=== PATIENT | male | born 1945 | race Caucasian/White ===

== ENCOUNTER 2018-12-27 06:44 | Observation (INO) ==
--- NOTE | 2018-12-27 07:00 | Emergency Department Note ---
Disposition Clinical Impression: Chest pain, rule out acute myocardial infarction Disposition: Admitted As Inpatient Condition: Good [facility]: [facility]Primary Care Provider[facility] - Forms: ED Satisfaction Letter Time of Disposition: 08:16 Chest Pain HPI - General Chief Complaint: ED Chest Pain Stated Complaint: chest pain/discomfort Time Seen by Provider: 12/27/18 06:46 Source: patient Mode of arrival: ambulatory Limitations: no limitations Vital Signs Reviewed: Yes Nursing Notes Reviewed: Yes - History of Present Illness HPI Narrative: Alert and oriented nontoxic-appearing 73-year-old male with a history of diabetes, hypertension, hyperlipidemia, and a previous history of smoking (stopped 10 years ago) presents for evaluation of a sudden onset of epigastric and substernal/anterior chest heaviness. He states that he awoke at 5:00 AM and felt fine. He went to sit in his chair and at approximately 5:15, the pain began. He stated that he was nauseated but did not vomit. He does endorse some mild degree of dyspnea but denies any cough or sputum production/hemoptysis. Pain is slightly worsened with inspiration. He denies any previous cardiac history but however states that he had a prescription for a bottle of nitrogly cerin as provided to him from the urgent care at the [facility]. He states that he experienced symptoms like this one other time in the past several years ago however this morning, the pain was more intense. He did self administer 4 sublingual nitroglycerin tablets at home. He states that approximately 20 minutes later, his pain improved from an 8 out of 10 to a 2 out of 10 on a 10 point scale. He was given 324mg of aspirin by EMS in route. He denies any other previous cardiac history or previous cardiac workup. Pt complaint: chest pain Onset (ago): hour(s) (5:15 AM) Duration: other (Improved) Pain Location: substernal, epigastric Severity scale (1-10): 2 Quality: heaviness Pain Radiation: none Improves with: nothing Worsens with: nothing Associated symptoms: Reports: nausea, dyspnea. Denies: vomiting, diaphoresis, syncope, palpitations, fever, cough, leg swelling Treatments prior to arrival chest pain: aspirin, nitroglycerin - Related Data Allergies Allergy/AdvReac Type Severity Reaction Status Date / Time No Known Allergies Allergy Verified 12/27/18 06:50 All systems ED: reviewed and negative except as stated. Review of Systems: As Per HPI Constitutional: Denies: fever, chills, weakness, weight change Eyes: Denies: eye pain, eye discharge, vision change ENT ED: Denies: ear pain, throat pain, dental pain, hearing loss, epistaxis, congestion, dysphagia Cardiovascular: Reports: as per HPI, chest pain. Denies: palpitations, dyspnea on exertion, edema, syncope Respiratory: Reports: as per HPI, dyspnea. Denies: cough, wheezes, hemoptysis, stridor, sputum production Gastrointestinal: Reports: as per HPI, nausea. Denies: abdominal pain, vomiting, diarrhea, constipation, hematemesis, melena, hematochezia Genitourinary: Denies: urgency, dysuria, frequency, hematuria Musculoskeletal: Denies: back pain, neck pain, arthralgia, myalgia Integumentary: Denies: rash, abrasion, lesions Neurological: Denies: headache, weakness, numbness, paresthesias, confusion, abnormal gait, vertigo Psychiatric: Denies: anxiety, depression, suicidal thoughts, homicidal thoughts, auditory hallucinations, visual hallucinations Endocrine: Denies: fatigue Hematological/Lymphatic: Denies: easy bleeding, easy bruising Allergic/Immunologic: Denies: facial swelling, urticaria Physical Exam - General Limitations: no limitations General appearance: alert, in no apparent distress - Head Head exam: atraumatic, normocephalic, normal inspection - Eye Eye exam: Present: normal appearance, PERRL, EOMI. Absent: nystagmus - ENT ENT exam: mucous membranes moist - Neck Neck exam: Present: normal inspection, full ROM - Chest Chest inspection: Present: normal inspection, symmetric chest wall rise. Absent: tenderness - Respiratory Respiratory exam: Present: normal lung sounds bilaterally. Absent: respiratory distress, wheezes, stridor, accessory muscle use, prolonged expiratory phase - Cardiovascular Cardiovascular exam: Present: regular rate, normal rhythm, normal heart sounds - Abdominal Exam Abdominal exam: Present: soft, Non-Tender, normal bowel sounds. Absent: distention, guarding, rebound, rigidity, mass - Extremities Exam Extremities exam: Present: normal inspection, full ROM - Neurological Exam Neurological exam: Present: alert, oriented X3 - Psychiatric Psychiatric exam: Present: normal affect, normal mood - Skin Skin exam: Present: warm, dry, intact, normal color Course Course Narrative: D-dimer is slightly elevated however remains within normal limits when adjusted for age. Normal troponin. Normal chest x-ray. Repeat EKG performed at 8:14 AM shows again a sinus rhythm at a rate of 67 bpm, QRS duration 99, QT/QTc interval 415/439. No ST elevations or significant depressions. No change in morphology when compared to previous EKG timed at 651 this morning. The patient has a heart score of 4. He will be admitted to medicine for ACS rule out. I have discussed this plan with Dr. Osborn, ED attending. He has had a [id number] evaluation with the patient and agrees with this plan. 0821: I spoke with Dr. Faust, admitting hospitalist. He has accepted the patient for permission to the hospitalist care. Vital Signs Temperature 98.5 F 12/27/18 06:50 Pulse Rate 54 12/27/18 06:50 Respiratory Rate 16 12/27/18 06:50 Blood Pressure 121/65 12/27/18 06:50 O2 Sat by Pulse Oximetry 100 12/27/18 06:50 Temperature 98.5 F 12/27/18 06:50 Pulse Rate 54 12/27/18 06:50 Respiratory Rate 16 12/27/18 06:50 Blood Pressure 121/65 12/27/18 06:50 O2 Sat by Pulse Oximetry 100 12/27/18 06:50 Oxygen Delivery Oxygen Delivery Room Air Chest Pain - Medical Records Medical records reviewed: Yes I reviewed the patient's medical records. - Lab Data Lab results reviewed: Yes I reviewed the patient's lab results. Lab results narrative: Lab Results 12/27/18 12/27/18 12/27/18 Range/Units 07:04 07:04 07:04 WBC 7.7 (4.3-11.1) K/mcL RBC 4.76 (4.19-5.50) M/mcL Hgb 12.7 L (12.9-16.9) g/dL Hct 38.9 (37.5-50.1) % MCV 81.7 L (83.0-100.0) fL MCH 26.7 L (28.0-33.3) pg MCHC 32.6 (31.6-35.5) g/dL RDW 16.2 H (11.5-14.5) % Plt Count 232 (140-400) K/mcL MPV 10.3 (9.4-12.4) fL Immature Gran % 0.3 (0-4) % Seg Neutrophils % 74.5 % Lymphocytes % 15.1 % Monocytes % 8.6 % Eosinophils % 0.8 % Basophils % 0.7 % Neutrophils # 5.7 (1.6-8.9) K/mcL Lymphocytes # 1.2 (0.6-4.6) K/mcL Monocytes # 0.7 (0.0-1.3) K/mcL Eosinophils # 0.1 (0.0-0.6) K/mcL Basophils # 0.1 (0.0-0.2) K/mcL PT 11.5 (9.4-12.1) Seconds INR 1.0 APTT 40.8 H (26.0-36.0) Seconds D-Dimer 548 H (0-500) ng/mLFEU Sodium (136-145) mEq/L Potassium (3.5-5.1) mEq/L Chloride (98-107) mEq/L Carbon Dioxide (23-29) mEq/L BUN (8-23) mg/dL Creatinine (0.70-1.30) mg/dL Est GFR ( Amer) (> 60) Est GFR (Non-Af Amer) (> 60) BUN/Creatinine Ratio (6-26) Glucose (70-105) mg/dL Calculated Osmolality (280-300) Calcium (8.6-10.3) mg/dL Total Bilirubin (0.3-1.0) mg/dL Direct Bilirubin (0.0-0.2) mg/dL Indirect Bilirubin (0.0-1.2) mg/dL AST (13-39) Units/L ALT (7-52) Units/L Alkaline Phosphatase (34-104) Units/L Troponin I (< 0.04) ng/mL B-Natriuretic Peptide 27 (Less than 100) pg/mL Serum Total Protein (6.4-8.9) g/dL Albumin (3.5-5.7) g/dL Globulin (2.4-3.5) g/dL Albumin/Globulin Ratio (1.1-2.2) Lipase (11-82) Units/L 12/27/18 Range/Units 07:04 WBC (4.3-11.1) K/mcL RBC (4.19-5.50) M/mcL Hgb (12.9-16.9) g/dL Hct (37.5-50.1) % MCV (83.0-100.0) fL MCH (28.0-33.3) pg MCHC (31.6-35.5) g/dL RDW (11.5-14.5) % Plt Count (140-400) K/mcL MPV (9.4-12.4) fL Immature Gran % (0-4) % Seg Neutrophils % % Lymphocytes % % Monocytes % % Eosinophils % % Basophils % % Neutrophils # (1.6-8.9) K/mcL Lymphocytes # (0.6-4.6) K/mcL Monocytes # (0.0-1.3) K/mcL Eosinophils # (0.0-0.6) K/mcL Basophils # (0.0-0.2) K/mcL PT (9.4-12.1) Seconds INR APTT (26.0-36.0) Seconds D-Dimer (0-500) ng/mLFEU Sodium 141 (136-145) mEq/L Potassium 3.6 (3.5-5.1) mEq/L Chloride 106 (98-107) mEq/L Carbon Dioxide 24 (23-29) mEq/L BUN 18 (8-23) mg/dL Creatinine 0.97 (0.70-1.30) mg/dL Est GFR ( Amer) > 60 (> 60) Est GFR (Non-Af Amer) > 60 (> 60) BUN/Creatinine Ratio 19 (6-26) Glucose 131 H (70-105) mg/dL Calculated Osmolality 296 (280-300) Calcium 9.4 (8.6-10.3) mg/dL Total Bilirubin 0.5 (0.3-1.0) mg/dL Direct Bilirubin 0.2 (0.0-0.2) mg/dL Indirect Bilirubin 0.3 (0.0-1.2) mg/dL AST 39 (13-39) Units/L ALT 23 (7-52) Units/L Alkaline Phosphatase 79 (34-104) Units/L Troponin I < 0.03 (< 0.04) ng/mL B-Natriuretic Peptide (Less than 100) pg/mL Serum Total Protein 6.5 (6.4-8.9) g/dL Albumin 3.8 (3.5-5.7) g/dL Globulin 2.7 (2.4-3.5) g/dL Albumin/Globulin Ratio 1.4 (1.1-2.2) Lipase 49 (11-82) Units/L Result diagrams: 12/27/18 07:04 12/27/18 07:04 Lab Results 12/27/18 12/27/18 12/27/18 Range/Units 07:04 07:04 07:04 WBC 7.7 (4.3-11.1) K/mcL RBC 4.76 (4.19-5.50) M/mcL Hgb 12.7 L (12.9-16.9) g/dL Hct 38.9 (37.5-50.1) % MCV 81.7 L (83.0-100.0) fL MCH 26.7 L (28.0-33.3) pg MCHC 32.6 (31.6-35.5) g/dL RDW 16.2 H (11.5-14.5) % Plt Count 232 (140-400) K/mcL MPV 10.3 (9.4-12.4) fL Immature Gran % 0.3 (0-4) % Seg Neutrophils % 74.5 % Lymphocytes % 15.1 % Monocytes % 8.6 % Eosinophils % 0.8 % Basophils % 0.7 % Neutrophils # 5.7 (1.6-8.9) K/mcL Lymphocytes # 1.2 (0.6-4.6) K/mcL Monocytes # 0.7 (0.0-1.3) K/mcL Eosinophils # 0.1 (0.0-0.6) K/mcL Basophils # 0.1 (0.0-0.2) K/mcL PT 11.5 (9.4-12.1) Seconds INR 1.0 APTT 40.8 H (26.0-36.0) Seconds D-Dimer 548 H (0-500) ng/mLFEU Sodium (136-145) mEq/L Potassium (3.5-5.1) mEq/L Chloride (98-107) mEq/L Carbon Dioxide (23-29) mEq/L BUN (8-23) mg/dL Creatinine (0.70-1.30) mg/dL Est GFR ( Amer) (> 60) Est GFR (Non-Af Amer) (> 60) BUN/Creatinine Ratio (6-26) Glucose (70-105) mg/dL Calculated Osmolality (280-300) Calcium (8.6-10.3) mg/dL Total Bilirubin (0.3-1.0) mg/dL Direct Bilirubin (0.0-0.2) mg/dL Indirect Bilirubin (0.0-1.2) mg/dL AST (13-39) Units/L ALT (7-52) Units/L Alkaline Phosphatase (34-104) Units/L Troponin I (< 0.04) ng/mL B-Natriuretic Peptide 27 (Less than 100) pg/mL Serum Total Protein (6.4-8.9) g/dL Albumin (3.5-5.7) g/dL Globulin (2.4-3.5) g/dL Albumin/Globulin Ratio (1.1-2.2) Lipase (11-82) Units/L / Range/Units 07:04 WBC (4.3-11.1) K/mcL RBC (4.19-5.50) M/mcL Hgb (12.9-16.9) g/dL Hct (37.5-50.1) % MCV (83.0-100.0) fL MCH (28.0-33.3) pg MCHC (31.6-35.5) g/dL RDW (11.5-14.5) % Plt Count (140-400) K/mcL MPV (9.4-12.4) fL Immature Gran % (0-4) % Seg Neutrophils % % Lymphocytes % % Monocytes % % Eosinophils % % Basophils % % Neutrophils # (1.6-8.9) K/mcL Lymphocytes # (0.6-4.6) K/mcL Monocytes # (0.0-1.3) K/mcL Eosinophils # (0.0-0.6) K/mcL Basophils # (0.0-0.2) K/mcL PT (9.4-12.1) Seconds INR APTT (26.0-36.0) Seconds D-Dimer (0-500) ng/mLFEU Sodium 141 (136-145) mEq/L Potassium 3.6 (3.5-5.1) mEq/L Chloride 106 (98-107) mEq/L Carbon Dioxide 24 (23-29) mEq/L BUN 18 (8-23) mg/dL Creatinine 0.97 (0.70-1.30) mg/dL Est GFR ( Amer) > 60 (> 60) Est GFR (Non-Af Amer) > 60 (> 60) BUN/Creatinine Ratio 19 (6-26) Glucose 131 H (70-105) mg/dL Calculated Osmolality 296 (280-300) Calcium 9.4 (8.6-10.3) mg/dL Total Bilirubin 0.5 (0.3-1.0) mg/dL Direct Bilirubin 0.2 (0.0-0.2) mg/dL Indirect Bilirubin 0.3 (0.0-1.2) mg/dL AST 39 (13-39) Units/L ALT 23 (7-52) Units/L Alkaline Phosphatase 79 (34-104) Units/L Troponin I < 0.03 (< 0.04) ng/mL B-Natriuretic Peptide (Less than 100) pg/mL Serum Total Protein 6.5 (6.4-8.9) g/dL Albumin 3.8 (3.5-5.7) g/dL Globulin 2.7 (2.4-3.5) g/dL Albumin/Globulin Ratio 1.4 (1.1-2.2) Lipase 49 (11-82) Units/L - Radiology Data Radiology results reviewed: Yes I reviewed the patient's radiology results. Chest X-Ray 12/27/18 06:54 IMPRESSION: No acute cardiopulmonary findings. D/ / Kell Kohler MD / Kell Kohler MD Interpreting Provider: Kell Kohler MD - EKG Data EKG attestation: Yes I reviewed and interpreted this EKG. EKG results narrative: EKG reviewed by Dr. Millan. EKG shows a sinus rhythm at a rate of 58 beats per minute. ND interval 208, QRS duration 102, QT/QTc interval 419/412. No ectopy noted. No ST elevation. Heart Score - Score History: Moderately Suspicious EKG: Normal Age: Greater than 65 Risk Factors: Equal/Greater than 3 risk factor or history of atherosclerotic disease Troponin: Less than normal limit HEART Score Total: 5 Attestation Statement - Attestation Attestation: I examined this patient and my medical decision-making was reviewed with the SHAKE SPLITTER/PA/Advanced Practice Nurse/Resident Physician. I agree with the documented findings, disposition and treatment plan as described except to the extent set forth below. Presents with chest pain and he does not have a history of heart disease and is here with his and he did have associated diaphoresis and dyspnea but no pleuritic aspect no radiation to the back and the patient does have a negative troponin. A initial EKG was done at 6:51 AM showing sinus bradycardia with a rate of 58 and without acute ischemic change but there is evidence of first- degree AV block and a second EKG was done at 8:14 AM at the patient did have o ngoing pain to the second EKG was ordered however at the time the EKG was done and the patient was pain-free and this EKG shows normal sinus rhythm with rate of 67 and also does show first-degree AV block with a ND interval of 222. The patient will be admitted. Hospitalist has been notified and has accepted. [id number]
[2018-12-27 07:14] LABS: Basophils # 0.1 K/mcL (0.0-0.2); Basophils % 0.7 %; Eosinophils # 0.1 K/mcL (0.0-0.6); Eosinophils % 0.8 %; Hematocrit 38.9 % (37.5-50.1); Hemoglobin 12.7 g/dL (12.9-16.9); Immature Granulocytes % 0.3 % (0-4); Lymphocytes # 1.2 K/mcL (0.6-4.6); Lymphocytes % 15.1 %; Mean Corpuscular HGB Conc 32.6 g/dL (31.6-35.5); Mean Corpuscular Hemoglobin 26.7 pg (28.0-33.3); Mean Corpuscular Volume 81.7 fL (83.0-100.0); Mean Platelet Volume 10.3 fL (9.4-12.4); Monocytes # 0.7 K/mcL (0.0-1.3); Monocytes % 8.6 %; Neutrophils # 5.7 K/mcL (1.6-8.9); Platelet Count 232 K/mcL (140-400); Red Blood Count 4.76 M/mcL (4.19-5.50); Red Cell Distribution Width 16.2 % (11.5-14.5); Segmented Neutrophils % 74.5 %
[2018-12-27 07:24] LABS: Prothrombin Time 11.5 Seconds (9.4-12.1)
[2018-12-27 07:27] LABS: Activated Partial Thrombo Time 40.8 Seconds (26.0-36.0)
[2018-12-27 07:39] LABS: Alanine Aminotransferase 23 Units/L (7-52); Albumin 3.8 g/dL (3.5-5.7); Albumin/Globulin Ratio 1.4 (1.1-2.2); Alkaline Phosphatase 79 Units/L (34-104); Aspartate Amino Transferase 39 Units/L (13-39); BUN/Creatinine Ratio 19 (6-26); Bilirubin,Direct 0.2 mg/dL (0.0-0.2); Bilirubin,Indirect 0.3 mg/dL (0.0-1.2); Bilirubin,Total 0.5 mg/dL (0.3-1.0); Blood Urea Nitrogen 18 mg/dL (8-23); Calcium 9.4 mg/dL (8.6-10.3); Carbon Dioxide 24 mEq/L (23-29); Chloride 106 mEq/L (98-107); Globulin 2.7 g/dL (2.4-3.5); Glucose 131 mg/dL (70-105); Lipase 49 Units/L (11-82); Osmolality,Calculated 296 (280-300); Potassium 3.6 mEq/L (3.5-5.1); Sodium 141 mEq/L (136-145); Total Protein 6.5 g/dL (6.4-8.9); Troponin I < 0.03 ng/mL (< 0.04); eGFR For Non-African Americans > 60 (> 60)
[2018-12-27] MEDS ORDERED: Naloxone 0.4 MG/ML INJ IVP PRN (08:51)
[2018-12-27] MEDS ORDERED: traMADol 50 MG TABLET PO PRN (08:51)
[2018-12-27 09:35] LABS: Chol/HDL Ratio 2.6 (0-4.9); Cholesterol 92 mg/dL (< 200); HDL Cholesterol 35 mg/dL (40-59); LDL Cholesterol,Calculated 39 mg/dL (0-99); Triglycerides 88 mg/dL (< 150)
[2018-12-27] MEDS ORDERED: Nitroglycerin 0.4 MG TAB.SUBL SL PRN (10:38)
[2018-12-27] MEDS ORDERED: Dextrose Gel 15 GM/37.5 ML TUBE PO PRN ×2 (10:39)
[2018-12-27] MEDS ORDERED: *HR* Dextrose 50 % in Water (Syg) 50 ML SYRINGE IVP PRN (10:39)
[2018-12-27] MEDS ORDERED: D5% in Water 1,000 ML IVC PRN (10:39)
--- NOTE | 2018-12-27 10:44 | Internal Med History&Physical ---
Date of Encounter: 12/27/18 Time of Encounter: 10:35 Internal Medicine - H&P: HPI Chief complaint: chest pain and shortness of breath. Plans for Post Hospital Care: Home History of present illness: Mr. Hernandez is a 73 year old male past medical history diabetes, hypertension, bipolar disorder, PTSD. Patient presented to the ED due to chest pain which started today morning while he was sitting at home. Patient reports today morning at around 5:15am he started having 8/10 sharp chest pain, radiating under his diaphragm associated with shortness of breath and nausea. The patient last >40 minutes. He took multiple doses of nitroglycerin but minimal relief of the pain and decided to come to the ED because he felt like he was having a heart attack. He reports similar symptoms a couple of years ago and was prescribed nitroglycerin subL PRN. Denies abdominal pain, headache, palpitation or dizziness. Past Med Surg Social Fam HX - Past Medical History Medical history: diabetes, hypertension Psychiatric history: anxiety, bipolar, depression, PTSD - Social History Smoking Status: Never smoker Smokeless Tobacco Status: No Alcohol use: none Drug use: none Internal Medicine - H&P: Meds Allergy/AdvReac Type Severity Reaction Status Date / Time No Known Allergies Allergy Verified 12/27/18 06:50 All Systems PM: A 10-system review of systems was performed and is negative for pertinent findings except as documented above in the HPI. - Constitutional Constitutional: no chills, no fever(s), no weakness - EENT Eyes: no irritation, no seeing flashes Nose, mouth and throat: no dental pain - Cardiovascular Cardiovascular ROS IM: chest pain, diaphoresis, dyspnea, no irregular heart rhythm, no lightheadedness, no orthopnea, no palpitations, no paroxysmal nocturnal dyspnea, no syncope - Respiratory Respiratory: no cough - Gastrointestinal Gastrointestinal: nausea, no abdominal pain, no vomiting - Genitourinary Genitourinary ROS male: urinary hesitancy, no dysuria, no nocturia, no post void dribbling, no urinary urgency - Musculoskeletal Musculoskeletal ROS IM: no atrophy, no numbness, no stiffness - Integumentary Integumentary IM: no erythema, no rash - Neurological Neurological ROS: no headache(s), no memory loss, no weakness - Psychiatric Psychiatric: no anxiety, no hopelessness - Endocrine Endocrine IM: no cold intolerance, no excessive sweating - Hematologic/Lymphatic Hematologic/Lymphatic: no lymphadenopathy - Allergic/Immunologic Allergic/Immunologic: no wheezing - Constitutional Vitals: Temp Pulse Resp BP Pulse Ox 98.5 F 54 18 132/67 100 12/27/18 06:50 12/27/18 06:50 12/27/18 09:18 12/27/18 09:18 12/27/18 06:50 Exam: Vitals: Reviewed General: Alert and oriented x4. In mild distress due to chest pain Skin: Normal color, no rash, no lesions. HEENT: EOM, pupils equal, round and reactive. Cardiovascular: RRR, normal S1 & S2, no rubs, murmurs or gallops. Lungs: CTA b/l, no wheezes or crackles. Abdomen: Obese, soft, non-tender, no rigidity. Extremities: No deformity, no edema or tenderness, no joint swelling or clubbing. Neurological: Normal cognition and motor skills. Rest of the physical exam is non contributory Internal Med - H&P Results - Labs CBC & Chem 7: 12/27/18 07:04 12/27/18 07:04 Labs: Short CBC 12/27/18 Range/Units 07:04 WBC 7.7 (4.3-11.1) K/mcL Hgb 12.7 L (12.9-16.9) g/dL Hct 38.9 (37.5-50.1) % Plt Count 232 (140-400) K/mcL Neutrophils # 5.7 (1.6-8.9) K/mcL BMP 12/27/18 07:04 Sodium 141 Potassium 3.6 Chloride 106 Carbon Dioxide 24 BUN 18 Creatinine 0.97 Glucose 131 H Calcium 9.4 Cardiac Enzymes 12/27/18 Range/Units 07:04 Troponin I < 0.03 (< 0.04) ng/mL Liver Function 12/27/18 Range/Units 07:04 Total Bilirubin 0.5 (0.3-1.0) mg/dL Direct Bilirubin 0.2 (0.0-0.2) mg/dL AST 39 (13-39) Units/L ALT 23 (7-52) Units/L Alkaline Phosphatase 79 (34-104) Units/L Albumin 3.8 (3.5-5.7) g/dL - Impressions ITS Impressions Chest X-Ray 12/27/18 06:54 IMPRESSION: No acute cardiopulmonary findings. D/ / Kell Kohler MD / Kell Kohler MD Interpreting Provider: Kell Kohler MD - Diagnostic Studies Chest x-ray Status: image reviewed by me (No acute findings) - Assessment and Plan (1) Chest pain Current Visit: Yes Status: Acute Assessment and plan: patient with multiple risk factors for CAD. Plan patient placed in observation to r/o ACS Serial troponin EKG Nitroglycerin 0.5 sublingual 3 every 15 minute when necessary continue metoprolol 12.5mg/PO daily with holding parameter for HR <55 TTE to evaluate wall motion or valvular abnormalities Pharmacology stress test ordered Aspirin 81 mg by mouth daily Telemetry monitoring Lipid panel Qualifiers: Chest pain type: unspecified Qualified Code(s): R07.9 - Chest pain, unspecified (2) HTN (hypertension) Current Visit: Yes Status: Chronic Assessment and plan: Patient is on amlodipine, and metoprolol. We will continue home medication. Qualifiers: Hypertension type: unspecified Qualified Code(s): I10 - Essential (primary) hypertension (3) Diabetes Current Visit: Yes Status: Chronic Assessment and plan: On metformin thousand milligram by mouth twice a day. Hold metformin while he is in the hospital will start patient on short and long acting insulin coverage carb controlled diet. Qualifiers: Diabetes mellitus type: type 2 Diabetes mellitus shelter insulin use: unspecified shelter insulin use status Diabetes mellitus complication status: with unspecified complications Qualified Code(s): E11.8 - Type 2 diabetes mellitus with unspecified complications (4) HLD (hyperlipidemia) Current Visit: Yes Status: Chronic Assessment and plan: Continue atorvastatin home dose. Qualifiers: Hyperlipidemia type: unspecified Qualified Code(s): E78.5 - Hyperlipidemia, unspecified (5) DVT prophylaxis Current Visit: Yes Status: Acute Assessment and plan: Started on heparin subcutaneous. - Time Spent With Patient Total time spent is greater than 50% in coordination of care (as documented) at patient's floor/unit and/or counseling patient: Greater than 35 minutes (45)
[2018-12-27] MEDS: Metoprolol XL (24 HR) Succ 25 MG TAB.ER.24H PO SCH (11:47)
[2018-12-27] MEDS: amLODIPine 5 MG TABLET PO SCH (12:02)
[2018-12-27] MEDS: Insulin LISPRO 300 UNITS/3 ML VIAL SQ SCH ×2 (12:04→16:39)
[2018-12-27] MEDS: *HR* Heparin 5,000 UNIT/ML VIAL SQ SCH ×2 (12:05→20:44)
[2018-12-27 15:36] LABS: Estimated Average Glucose 123 mg/dl; Hemoglobin A1C 5.9 %
[2018-12-27] MEDS ORDERED: Melatonin 3 MG TABLET PO PRN (20:50)
[2018-12-27] MEDS ORDERED: Insulin DETEMIR 100 UNIT/ML X5UNITS SQ SCH (21:00)
[2018-12-27 22:25] LABS: Bilirubin,Urine Negative (Negative); Blood,Urine Negative (Negative); Clarity,Urine Clear (Clear); Color,Urine Yellow (Yellow); Glucose,Urine (UA) Normal (Normal); Ketones,Urine Negative (Negative); Leukocyte Esterase,Urine Negative (Negative); Nitrite,Urine Negative (Negative); Protein,Urine Negative (Neg-Trace); Specific Gravity,Urine 1.018 (1.010-1.025); Urobilinogen,Urine Normal (Normal)
[2018-12-28 01:33] LABS: Basophils % 0.6 %; Eosinophils # 0.1 K/mcL (0.0-0.6); Eosinophils % 1.3 %; Hematocrit 36.8 % (37.5-50.1); Hemoglobin 11.9 g/dL (12.9-16.9); Immature Granulocytes % 0.4 % (0-4); Lymphocytes # 1.8 K/mcL (0.6-4.6); Lymphocytes % 25.5 %; Mean Corpuscular HGB Conc 32.3 g/dL (31.6-35.5); Mean Corpuscular Hemoglobin 26.4 pg (28.0-33.3); Mean Corpuscular Volume 81.8 fL (83.0-100.0); Mean Platelet Volume 10.2 fL (9.4-12.4); Monocytes # 0.7 K/mcL (0.0-1.3); Monocytes % 9.7 %; Neutrophils # 4.5 K/mcL (1.6-8.9); Platelet Count 217 K/mcL (140-400); Red Cell Distribution Width 16.3 % (11.5-14.5); Segmented Neutrophils % 62.5 %
[2018-12-28 01:50] LABS: BUN/Creatinine Ratio 20 (6-26); Blood Urea Nitrogen 19 mg/dL (8-23); Calcium 9.1 mg/dL (8.6-10.3); Carbon Dioxide 24 mEq/L (23-29); Chloride 108 mEq/L (98-107); Glucose 115 mg/dL (70-105); Magnesium 2.1 mg/dL (1.6-2.6); Osmolality,Calculated 291 (280-300); Phosphorous 3.5 mg/dL (2.7-4.5); Potassium 3.4 mEq/L (3.5-5.1); Sodium 139 mEq/L (136-145); eGFR For Non-African Americans > 60 (> 60)
[2018-12-28] MEDS: *HR* Heparin 5,000 UNIT/ML VIAL SQ SCH ×2 (05:26→13:09)
[2018-12-28] MEDS ORDERED: Regadenoson 0.4 MG/5 ML SYRINGE IVP ONE (06:13)
[2018-12-28] MEDS: Insulin LISPRO 300 UNITS/3 ML VIAL SQ SCH ×2 (08:56→11:35)
--- NOTE | 2018-12-28 10:54 | Electrocardiograph Report ---
[address] [address] Test Date: 2018-12-27 Pat Name: Blue Hernandez Department: [id number] Room: [facility] Gender: M Lab Head: : [id number] Requested By: Lukas Muro Order Number: [id number] Reading MD: Irma Oliveros Measurements Intervals [place] Rate: 58 P: 58 NV: 208 QRS: 64 QRSD: 102 T: 51 QT: 419 QTc: 412 Interpretive Statements Sinus rhythm Electronically Signed On 12-28-2018 10:53:12 EDT by Irma Oliveros
[2018-12-28 11:24] VITALS: BP 159/81
[2018-12-28] MEDS: Metoprolol XL (24 HR) Succ 25 MG TAB.ER.24H PO SCH (13:10)
[2018-12-28] MEDS: amLODIPine 5 MG TABLET PO SCH (13:10)
--- NOTE | 2018-12-28 13:21 | Discharge Summary ---
- NOTES TO OUTPATIENT PROVIDER Notes to Outpatient Provider: Patient had negative stress test. Consider increasing dose of atorvastatin to medium intensity. Consider follow up with cardiology given diastolic dysfunction. Orders not resulted at time of discharge: Pending orders 12/27/18 08:56 NM himanshu perf SPECT multi [NM] Routine Date of Encounter: 12/28/18 Time of Encounter: 13:17 - Discharge Diagnosis (1) Chest pain Priority: Primary Status: Acute Qualifiers: Chest pain type: unspecified Qualified Code(s): R07.9 - Chest pain, unspecified (2) HTN (hypertension) Priority: Secondary Status: Chronic Qualifiers: Hypertension type: unspecified Qualified Code(s): I10 - Essential (primary) hypertension (3) Diabetes Priority: Secondary Status: Chronic Qualifiers: Diabetes mellitus type: type 2 Diabetes mellitus window trimmer apprentice insulin use: unspecified window trimmer apprentice insulin use status Diabetes mellitus complication status: with unspecified complications Qualified Code(s): E11.8 - Type 2 diabetes mellitus with unspecified complications (4) HLD (hyperlipidemia) Priority: Secondary Status: Chronic Qualifiers: Hyperlipidemia type: unspecified Qualified Code(s): E78.5 - Hyperlipidemia, unspecified (5) DVT prophylaxis Priority: Secondary Status: Acute Hospital course: Mr. Hernandez is a 73 year old male past medical history of diabetes hypertension PTSD bipolar came in with complain of chest pain. Patient had workup for ACS with troponin which were negative, echocardiogram showed diastolic dysfunction and EF of 60% without wall motion abnormality. Patient had nonexercise nuclear stress test which was negative for ischemia with perfusion imaging as well as EKG. There was mild/moderate intensity medium sized fixed inferior and inferoseptal perfusion defect which was consistent with artifact. Patient otherwise stable without any further episodes of chest pain. Patient will be discharged home to be followed with mask inspector as well as PCP as outpatient. Discharge discussed with: patient, family, nurse - Time Spent with Patient Total time spent providing and/or coordinating discharge services: Time spent: Greater than 30 minutes - Discharge Medications Prescriptions: Continue Omeprazole [PriLOSEC] 40 mg PO DAILY Metoprolol Succinate [Toprol Xl] 150 mg PO DAILY metFORMIN [Glucophage] 500 mg PO 0800 hydroCHLOROthiazide [Hydrochlorothiazide] 25 mg PO DAILY Fluorouracil [Fluoroplex] 1 appl TP DAILY Finasteride [Proscar] 5 mg PO DAILY Ferrous Sulfate [Iron] 325 mg PO DAILY Docusate Sodium [Dulcolax Stool Softener] 100 mg PO DAILY Cholecalciferol (Vitamin D3) [Vitamin D3] 1,000 unit PO DAILY Amlodipine Besylate 10 mg PO DAILY Tamsulosin HCl [Flomax] 0.4 mg PO HS Atorvastatin [Lipitor] 5 mg PO HS Oxybutynin [Ditropan] 5 mg PO BID Discontinued Naproxen [EC-Naprosyn] 375 mg PO BID PRN PRN Reason: Pain Home Medications: Amlodipine Besylate 10 mg PO DAILY 12/27/18 [History] Atorvastatin [Lipitor] 5 mg PO HS 12/27/18 [History] Cholecalciferol (Vitamin D3) [Vitamin D3] 1,000 unit PO DAILY 12/27/18 [History] Docusate Sodium [Dulcolax Stool Softener] 100 mg PO DAILY 12/27/18 [History] Ferrous Sulfate [Iron] 325 mg PO DAILY 12/27/18 [History] Finasteride [Proscar] 5 mg PO DAILY 12/27/18 [History] Fluorouracil [Fluoroplex] 1 appl TP DAILY 12/27/18 [History] Metoprolol Succinate [Toprol Xl] 150 mg PO DAILY 12/27/18 [History] Omeprazole [PriLOSEC] 40 mg PO DAILY 12/27/18 [History] Oxybutynin [Ditropan] 5 mg PO BID 12/27/18 [History] Tamsulosin HCl [Flomax] 0.4 mg PO HS 12/27/18 [History] hydroCHLOROthiazide [Hydrochlorothiazide] 25 mg PO DAILY 12/27/18 [History] metFORMIN [Glucophage] 500 mg PO 0800 12/27/18 [History] Allergies/Adverse Reactions: Allergy/AdvReac Type Severity Reaction Status Date / Time No Known Allergies Allergy Verified 12/27/18 16:42 Date of admission: 12/27/18 08:41 Primary care physician: [facility] Discharging clinician: Mickey Kohler - Constitutional Vitals: Temp Pulse Resp BP Pulse Ox 98.4 F 57 16 159/81 96 12/28/18 11:23 12/28/18 11:23 12/28/18 11:23 12/28/18 11:23 12/28/18 11:23 Exam: General: In no acute distress. Respiratory exam: CTAB. no accessory muscle use, rales, rhonchi, wheezes Cardiovascular exam: RRR, +S1, +S2. no murmur, gallop, rubs. GI/Abdominal exam: Non-tender, Non-distended, normal bowel sounds, soft, no peritoneal signs. Extremities exam: no pedal edema, pulses palpable in b/l lower extremities. no calf tenderness Neurological exam: CN II-XII intact, AO X3, no focal deficits. Skin exam: No skin rash - Patient Status Disposition: Home, Self-Care Condition: Good - Discharge Instructions Follow [facility] With: [facility] [Primary Care Provider[facility] - - Diet and Activity Activity: increase activity as tolerated
--- NOTE | 2018-12-29 14:31 | Electrocardiograph Report ---
[facility] [employer] Test Date: 2018-12-27 Pat Name: Blue Hernandez Department: [id number] Room: [facility] Gender: M Group Rooms Coordinator: : 1945 Requested By: Lukas Muro Order Number: [id number] Reading MD: Antony Seals Measurements Intervals [place] Rate: 67 P: 73 [place]: 222 QRS: 72 QRSD: 99 T: 48 QT: 415 QTc: 439 Interpretive Statements Sinus rhythm Prolonged [place] interval Electronically Signed On 12-29-2018 14:29:49 EDT by Antony Seals
== END 2018-12-28 14:09 | disposition home or self-care (01) ==
LOC: 3NENU 06:44 → EMEROOARM 06:44 → SUATTDRO 08:41 → 3NENU 09:28
PROVIDERS: ADMIT Internal Medicine; ATTEND Internal Medicine